=== PATIENT | female | born 1990 | race Hispanic/Latino ===

== ENCOUNTER 2016-10-31 05:49 | Inpatient (IN) | payer MEDICAID ==
[~2016-10-31] VITALS: Ht 157.5 cm; Wt 73.0 kg
[~2016-10-31 05:49] MED LIST: HYDR25SU31 RC; NORE1PAT TD; OXYC-388 PO
[2016-10-31] MEDS ORDERED: Lactated Ringer's 1,000 ML IV PRN (06:46)
[2016-10-31] MEDS ORDERED: Oxytocin 30 Units/500 mL LR 30 UNITS in IV Premix 1 EACH IV PRN ×2 (06:50→10:45)
[2016-10-31] MEDS ORDERED: Sodium Chloride LOK Flush 10 mL Syringe IVFLUSH PRN (06:50)
[2016-10-31] MEDS ORDERED: Oxytocin 30 Units/500 mL LR Premix IV ONE (06:50)
[2016-10-31] MEDS ORDERED: Oxytocin 10 Unit/mL Inj IM PRN ×2 (06:50→10:45)
[2016-10-31] MEDS ORDERED: Hemorrhage Kit, Post Partum XX ONE ×2 (06:50→10:45)
[2016-10-31] MEDS ORDERED: Methylergonovine 0.2 mg/mL Inj IM PRN ×2 (06:50→10:45)
[2016-10-31] MEDS ORDERED: Carboprost 250 mCg/mL Inj IM PRN ×2 (06:50→10:45)
[2016-10-31 07:06] LABS: Mean Corpuscular Hemoglobin 24.3 pg (27.0-35.0); Mean Corpuscular Volume 77.5 fL (81-100)
[2016-10-31] MEDS ORDERED: PREN1TAB87 PO (07:08)
[2016-10-31] MEDS ORDERED: Lactated Ringer's 500 ML IV ONE (07:19)
[2016-10-31] MEDS ORDERED: EPHEDrine Sulfate 50 mg/mL Inj IVPUSH PRN (07:20)
[2016-10-31] MEDS ORDERED: Atropine 1 mg/10 mL (Code) Syringe IVPUSH PRN (07:20)
[2016-10-31] MEDS ORDERED: fentaNYL 2 mCg/mL-Bupiv 0.125% 100 ML EPIDURAL SCH (07:20)
[2016-10-31] MEDS ORDERED: Ondansetron 2 mg/mL 2 mL Inj IVPUSH PRN (07:20)
[2016-10-31] MEDS: Lactated Ringer's 1,000 ML IV SCH ×4 (07:24→18:44)
--- NOTE | 2016-10-31 07:30 | PCM.HPOB ---
Subjective Date of Service: Oct 31, 2016 Referring Provider: Admitting Physician: John Salter MD Primary Care Physician: Nopcp Attending Physician: John Salter MD Chief Complaint Active labor Vaginal delivery 39 weeks gestation History of Present History of Present Illness This is a 25-year-old at 39 weeks and 5 days with an BANG of 11/02/16 established by 7 week 3 day ultrasound who presents with regular contractions and cervical change. She states this morning she has been having regular contractions. She states she has not had a loss of fluid at this point. She is having regular contractions every 1-2 minutes with cervical exam of 8 cm dilation. She is GBS negative. Her blood type is O negative, rubella immune, RPR nonreactive, Varicella nonimmune, HIV nonreactive and HBsAg negative. OB History: (3), Para (2), Term (2), Pre-term (0), ( 0), Living (2) Obstetrical Complications: Other (history of LEEP procedure) Past Medical History Obstetrical History: 1 2 Gynecologic History: Normal Pap smear LSIL LEEP procedure Ovarian cyst Medical History: Psoriasis Hx Tobacco Use: No Hx Alcohol Use: No Hx Substance Use: No Past Family History Living Arrangement: with Family Genetic Screening/Counseling Genetic Screening/Counseling: Negative Review of Systems Constitutional: Y: Fever Eyes: Denies: Blurred Vision ENT: Denies: Throat Pain Cardiovascular: Denies: Chest Pain, Orthopnea Respiratory: Denies: Pleuritic Chest Pain Gastrointestinal: Denies: Epigastric pain Genitourinary: Denies: Dysuria Musculoskeletal: Reports: Back Pain Neurological: Denies: Confusion Psychologic: Denies: Agitation Endocrine: Denies: Diaphoresis Allergy Coded Allergies: No Known Allergies (Verified Allergy, Unknown, 10/31/16) Exam Vital Signs bp 122/56 pulse 85 rr 16 temp 36.5 Exam heart tones baseline 145 Cat I with moderate variability Constitutional: Well-developed, Well-nourished, Normal habitus HEENT: Atraumatic, Scleral Anicteric Lungs: Clear to Auscultation Heart: Regular Rate/Rhythm, Normal S1, Normal S2, No Murmurs/Rubs/Gallops Abdomen: Gravid Extremities: Warm, No Edema Neurological/Psychiatric: Alert, Oriented X3, Cooperative, No Acute Distress Neuro: Normal DTRs, No Clonus noted, Cranial Nerves 3-12 nl, Normal Speech, Normal Gait Labs/Diagnostics Labs Laboratory Tests 72 Hours Test 10/31/16 06:30 White Blood Count 11.4th/mm3 (3.8-10.1) Red Blood Count 4.53mil/mm3 (3.90-5.20) Hemoglobin 11.0g/dL (12.0-15.6) Hematocrit 35.1% (35.0-46.0) Mean Corpuscular Volume 77.5fL (81-100) Mean Corpuscular Hemoglobin 24.3pg (27.0-35.0) Mean Corpuscular Hemoglobin Concent 31.3% (32.0-37.0) Red Cell Distribution Width 15.2% (12.3-15.4) Platelet Count 177bil/L (150-400) Maternal Blood Type: O (negative) Hx Rho(D) Immune Globulin: Yes Group B Strep Results: Negative Previous Infant with GBS: No Rubella: Immune Lab History: Negative for: Hx Chicken Pox, Hx HIV, Hx Syphilis OB Intrapartum Assessment/Plan Problems: (1) 39 weeks gestation of Status: Resolved ICD Code: Z3A.39 (2) Plan: Routine intrapartum care active Management of labor Rh negative - RhoGam after delivery Status: Resolved ICD Code: Z33.1 Attending Statement The patient was seen and examined together with Anny Case DO on 2016 and I agree with the history, exam and plan as outlined in the note above. Anny Paniagua DO Oct 31, 2016 07:30 John Salter MD Nov 04, 2016 19:27
--- NOTE | 2016-10-31 08:08 | PCM.HPANE ---
Patient Data Surgeon Admitting Provider:John Salter MD Attending Provider:John Salter MD Primary Care Physician:Mica Other Provider:Shelby Swain Anesthesia Reason for Visit Term Labor TERM LABOR Ht/WT & BMI Body Mass Index Allergies Coded Allergies: No Known Allergies (Verified Allergy, Unknown, 10/31/16) Past Anesthesia History Anesthesia History: Denies:: Fam Anesthesia Reaction, Fam Malignant Hypertherm Diabetes History Hx Diabetes?: No MRSA MRSA: No Medications Reported Medications Vit W-Ca,Fe,FA(<1 mg) ( Vitamins)1 Each Tablet1 Each PO 10/31/16 Discontinued Reported Medications oxyCODONE-Aspirin 5-325 mg 1 Each Tablet1 Tablet PO Q6H PRN For Pain Ref 0 11/30/14 Norelgestromin/Ethin.estradiol (Ortho Evra Patch)1 Each Patch.tdwk1 Each TD Q WK USE Q WEEK X3, THEN OFF 1 WEEK 11/30/14 Discontinued Scripts Hydrocortisone Acetate (Anusol-Hc)25 Mg Supp.rect25 Mg RC BID #10 SUPP Prov:Amari Garland MD 07/11/15 History History of ENT Problems?: No HEENT History: Denies:: Abnormal Airway Cataracts Difficult Intubation Dysphagia Glaucoma Hearing Problem Sinus Problem TMJ Denture Type: None Teeth Condition: Within Normal Limits Hx of Heart Problems?: No Cardiovascular History: Denies:: Congestive Heart Failure Hypertension Hx of Respiratory Problem?: Yes Respiratory History: Denies:: Tuberculosis (+PPD 2012-REPORTS BEING TOLD BY HEALTH DEPARTMENT THAT SHE WAS "NEG") Use of C-PAP Machine Other History/Comment ROS negative Hx Neurologic Problems?: No Hx of GI Problems?: Yes Hx of Problems?: No Female Hx: Positive for:: Pelvic Inflammatory (HX CHLAMYDIA 2013-TREATED) Denies:: Currently Skin History: Denies:: History Skin Disorders? Pressure Ulcers Hx Musculoskeletal Problems?: No Hx of Psycho/Social Problems?: No Hx Surgeries?: Yes (cone bx. ) Hx Any Other Health Problems?: No Other History: Positive for:: Hospitalization (CHILDBIRTH) Denies:: Cancer Endocrine Disease Thyroid Disease History Blood Transfusions: Denies:: Blood Transfusions Hx Diabetes: No Hx Alcohol Use: NoHx Substance Use: No Smoking Status: Never Smoker Have You Smoked inLast 12 mo: No Stop/Bang Treated for Sleep Apnea?: No Risk Assessment Category Category 1A: Patient has history of documented sleep apnea, and HAS NOT received any narcotic, sedative or anesthesia administration during this stay. Category 1B: Patient has history of documented sleep apnea, and HAS received any narcotic , sedative or anesthesia administration during this stay Category 2: Patient has SUSPECTED Obstructive Sleep Apnea, and HAS received any narcotic , sedative or anesthesia administration during this stay. Category 3: Patient has SUSPECTED Obstructive Sleep Apnea and HAS NOT received narcotic, sedative or anesthesia administration during this stay. Category 4: Outpatient in Procedural Areas with known sleep apnea or who screen positive for High Risk via the STOP/BANG questionnaire. Exam Exam General Appearance: Alert, Oriented X3, Cooperative, No Acute Distress HEENT/AIRWAY: MP 2 Lungs: Clear to Auscultation Heart: Regular Rate/Rhythm, Normal S1, Normal S2, No Murmurs/Rubs/Gallops Meds/Labs/Diagnostics Admission Meds Current Medications Lactated Ringer's (Lr) 1,000 ml @ 125 mls/hr Q8H IV Last administered on t 07:24; Start 10/31/16 at 07:19; Stop 11/01/16 at 07:20 Labs Test 10/31/16 06:30 White Blood Count 11.4th/mm3 (3.8-10.1) Red Blood Count 4.53mil/mm3 (3.90-5.20) Hemoglobin 11.0g/dL (12.0-15.6) Hematocrit 35.1% (35.0-46.0) Mean Corpuscular Volume 77.5fL (81-100) Mean Corpuscular Hemoglobin 24.3pg (27.0-35.0) Mean Corpuscular Hemoglobin Concent 31.3% (32.0-37.0) Red Cell Distribution Width 15.2% (12.3-15.4) Platelet Count 177bil/L (150-400) Plan Impression Patient chart reviewed, patient interviewed and anesthestic plan with risks, benefits, and alternatives discussed, and informed consent obtained. ASA Physical Status: ASA2 Mod Systemic Disease Anesthetic Plan: Epidural Bene/Risks/Altern/Consents: Yes HP Complete Prior to Induction: Yes Other History and physical completed before epidural, but charted afterwards to expidite pain relief Romeo Walsh MD Oct 31, 2016 08:08
--- NOTE | 2016-10-31 08:09 | PCM.ANEP1 ---
Post Anesthesia PACU Phase 1 Assessment Anesthetic Administered: Epidural Level of Alertness: Awake, talking DRAKE's with Equal Strength: No Pain: Yes Pain Scale Score: 2 Nausea or Vomiting: No CV Function & Hydration Stable: Yes Airway Device: Oxygen Delivery: Room Air Lungs: Clear to Auscultation Dermatome Level: T10 (Umbilicus) PACU Phase 2 Assessment Complications: No Follow up Care: No Patient Instructions Provided: Yes Comments Good pain relief Romeo Walsh MD Oct 31, 2016 08:09
--- NOTE | 2016-10-31 08:22 | HP ---
[address] [address] HISTORY AND PHYSICAL PATIENT: SCOTT HOANG : 1990 MR#: [id number] ADMIT: 10/31/2016 JOB ID: [id number] This is a 25-year-old female 3, para 2-0-0-2, at 39 weeks plus 5 days. She presented to [facility] for contractions and she was noticed to be 8 cm dilated. This is a patient who had routine care at [facility]. During her care, it was noticed that her blood type is O negative, varicella nonimmune, rubella immune, RPR negative, HBsAg negative, HIV negative. Diabetes screen, GCT 135. Chlamydia and gonorrhea negative. GBS negative. ALLERGIES: The patient has no known drug allergies. PAST MEDICAL HISTORY: Declined. PAST SURGICAL HISTORY: History of LEEP procedure for SURINDER III. GYNECOLOGIC HISTORY: The patient has a known Pap smear and diagnosed SURINDER III and she had a LEEP procedure in 2014. During she had serial cervical length measurements within normal limits. OBSTETRICAL HISTORY: She has two vaginal deliveries before at 2007 and 2012. Both deliveries not complicated. PHYSICAL EXAMINATION: She is afebrile. Cardiac: RRR. No murmur. Pulmonary: Bilaterally clear. Abdomen: Soft, nontender. Uterus relaxed well during contractions. Extremities: Nontender. Pelvic examination was 8 cm dilation, -2 station. ASSESSMENT AND PLAN: 1. A 35-year-old female 3, para 2-0-0-2, at 39 weeks plus 5 days presents to [facility] for labor. When patient in active labor, she can get epidural for pain if it is possible. 2. Expect vaginal delivery. 3. No antibiotic needed for GBS negative status. 4. The patient desires for permanent sterilization. Consent form signed more than a month ago.
[2016-10-31] MEDS: Sodium Chloride LOK Flush 10 mL Syringe IVFLUSH SCH ×2 (08:30→16:30)
[2016-10-31] MEDS ORDERED: HYDROcodone-APAP 5-325 mg Tablet PO PRN (10:45)
[2016-10-31] MEDS ORDERED: Benzocaine (Dermoplast) 20% 60 Gm Spray TOPICAL PRN (10:45)
[2016-10-31] MEDS ORDERED: Witch Hazel-Glycerin Pads TOPICAL PRN (10:45)
[2016-10-31] MEDS ORDERED: LANOlin HPA 7 Gm Ointment TOPICAL PRN (10:45)
--- NOTE | 2016-10-31 11:20 | PCM.OBVAG ---
Vaginal Delivery Date of Service Oct 31, 2016 Pre Operative Diagnosis Pre Operative Diagnosis 39 weeks gestation Vaginal delivery Post Operative Diagnosis Post Operative Diagnosis Procedure Procedure: This is a 25-year-old at 39 weeks and 5 days with an BANG of 11/02/16 established by 7 week 3 day ultrasound who presents with regular contractions and cervical change. She states this morning she has been having regular contractions. She states she has not had a loss of fluid at this point. She is having regular contractions every 1-2 minutes with cervical exam of 8 cm dilation. She is GBS negative. She was found to be completed at the time of artificial rupture of membranes at 947. 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 No nuchal cord was noted. The rest of the body was delivered. The baby was placed on maternal abdomen, skin to skin. Warming and stimulating maneuvers were applied. After a minute, the cord was clamped, and cut. The was delivered at 10:30. The umbilical cord did avulse so manual extraction of the placenta was done at bedside and the placenta was extracted intact at 1037. Uterus firmed with manual external massage. The perineum was examined and there was a first degree tear which was repaired with 3-0 vicryl in the usual fashion. Sponge and instrument counts were correct x2 at the close of the procedure. The patient and infant tolerated the procedure well and pt is stable in her room. Specimen Specimens: Placenta (for disposal), Cord gas/pH (cord blood sample obtained) IV Intake/Output Catheters: None Blood Loss & Administration Estimated Blood Loss: 200 Blood Admin during procedure: No Post Procedure Plan Post Procedure Plan Routine care RhoGAM before discharge Post delivery Condition: Mom stable, Baby stable to nursery Attending Statement I was present for the entire procedure and assisted Dr. Anny Paniagua as needed and agree with the above documentation. Anny Paniagua DO Oct 31, 2016 11:11 John Salter MD Nov 04, 2016 19:30
[2016-10-31] MEDS ORDERED: Sodium Citrate-Citric Acid 30 mL Solution PO ONE (11:30)
[2016-10-31] MEDS ORDERED: Sodium Citrate-Citric Acid 15 mL Solution PO ONE (12:10)
[2016-10-31] MEDS ORDERED: Bupivacaine-MPF 0.25%/EPI 30 mL Inj ONE (12:32)
--- NOTE | 2016-10-31 14:19 | OP ---
[address] [address] OPERATIVE REPORT PATIENT: SCOTT HOANG : 1990 MR#: [id number] ADMIT: 10/31/2016 JOB ID: [id number] DATE OF SURGERY: 10/31/2016 PREOPERATIVE DIAGNOSIS(ES): 1. Sterilization. 2. Multigravida. POSTOPERATIVE DIAGNOSIS(ES): 1. Sterilization. 2. Multigravida. PROCEDURE PERFORMED: bilateral tubal ligation using a modified Hull method. SURGEON: John Salter MD ROCK DRILL OPERATOR: Prince Gallego MD ANESTHESIA: Epidural. ESTIMATED BLOOD LOSS: 1 mL. COMPLICATIONS: None. PATHOLOGY SENT: Portion of right and left fallopian tube. FINDINGS AT TIME OF SURGERY: Normal appearing fallopian tubes bilaterally. INDICATION FOR PROCEDURE: The patient is a 25-year-old three, now para three, who is recently status post normal spontaneous vaginal delivery who desires permanent sterilization. She understands the permanence of the procedure and requested bilateral tubal ligation. DESCRIPTION OF PROCEDURE: The patient was taken to the operating room, where her epidural anesthesia was found be adequate. She was placed in a lithotomy position and prepared and draped in the normal sterile fashion. An adequate and appropriate preoperative time-out was performed. The umbilicus was then injected with 5 mL of 0.25% Marcaine with epinephrine. A transverse skin incision was made just below the umbilicus approximately 5 cm in length. This was then carried down to the underlying fascia, which was tented up and entered sharply. The fascial incision was extended with gentle traction. The perineum was identified and entered sharply with Metzenbaum scissors. The right fallopian tube was then identified and followed out to the fimbriated end. A defect was made in the mesosalpinx and two free ties of 0 plain gut suture were used to isolate and ligate a segment of the tube. The intervening segment was excised. Good hemostasis was assured. The fallopian tube was returned to the patient's peritoneal cavity. In a similar fashion, the left fallopian tube was identified, followed out to its fimbriated end. The tube was grasped with a [place] clamp in the mid isthmic portion and a defect made in the mesosalpinx. Two free ties of 0 plain gut suture were used to isolate and ligate a segment of the tube and the intervening segment was excised. Good hemostasis was assured. The fallopian tube was returned to the patient's peritoneal cavity. The fascia was then reapproximated in a running fashion with 0-Vicryl suture. The skin was closed with a 4-0 Monocryl in a subcuticular fashion and Dermabond applied. All lap, instrument, and needle counts were correct x2 at the end of the procedure. The patient was taken to the recovery room, awake and in good condition.
[2016-10-31] MEDS: Ascorbic Acid 500 mg Tablet PO SCH (18:55)
--- NOTE | 2016-10-31 19:09 | NUR ---
Admit Term AGA vigorous male - exam WNL. VSS and temp WNL as well. BAby has stooled and voided, and nursing well independently. bart noted on R lateral aspect of ankle. Mom providing care independently. Stable and progressing toward DC goals.
[2016-11-01] MEDS ORDERED: CeFAZolin Inj 2 GM in IV Premix 1 EACH IV ONE (06:00)
[2016-11-01 06:43] LABS: Mean Corpuscular Hemoglobin 24.1 pg (27.0-35.0); Mean Corpuscular Volume 78.5 fL (81-100)
[2016-11-01] MEDS: Ascorbic Acid 500 mg Tablet PO SCH ×2 (08:40→18:12)
--- NOTE | 2016-11-01 11:55 | PCM.DIOB ---
Obstetrical Disch Instruction Date of Service: Nov 01, 2016 Dates of Hospitalization Date of Hospital Admission Oct 31, 2016 at 06:06 Providers Admitting Physician: John Salter MD Primary Care Physician: Mica Attending Physician: John Salter MD Discharge Diagnosis Discharge Diagnosis PPD1 Problems: (1) 39 weeks gestation of Status: Acute ICD Code: Z3A.39 (2) Plan: discharge home today Status: Acute ICD Code: Z33.1 Diet Discharge Diet: No restrictions Activity Discharge Activity-General: Pelvic Rest for 6 weeks, Try not to overdue, Be up and about, Balance rest and activity, No lifting >15 pounds for 2 weeks Dressing and Incisional Care Hygiene: May shower, NO bathtub, hot tub or whirlpool Additional Instructions Discharge Instructions Please call office or go to ER if heavy vaginal bleeding, severe abdominal pain , foul smelling discharge, fever more than 100.4 or short of breath. Follow Up Plan Follow Up Plan 6 weeks Call your provider for: Fever or Chills, Shortness of breath, Heavy vaginal bleeding, Heavy bleeding, Epigastric pain, Excessive constipation, Vaginal discomfort, Red painful breasts Bárbara Vazquez MD Nov 01, 2016 11:55
[2016-11-01] MEDS ORDERED: IBUP800T28 PO (11:57)
[2016-11-01] MEDS ORDERED: FERR-74 PO (11:57)
[2016-11-01] MEDS ORDERED: DOCU-41 PO (11:57)
[2016-11-01] MEDS ORDERED: HYDR-4003 PO (11:57)
--- NOTE | 2016-11-01 12:01 | PCM.DC.OB ---
Obstetrical Discharge Summary Date of Service Nov 01, 2016 Date of hospital admission Oct 31, 2016 at 06:06 Date of Discharge: Nov 01, 2016 Providers Admitting Physician: John Salter MD Primary Care Physician: Nopcp Attending Physician: John Salter MD Diagnosis at Time of Discharge PPD1 Problems: (1) 39 weeks gestation of Status: Resolved ICD Code: Z3A.39 (2) Status: Resolved ICD Code: Z33.1 Invasive procedures and tubal ligation Date of Procedure: Oct 31, 2016 Brief History and Physical: This is a 25-year-old at 39 weeks and 5 days with an BANG of 11/02/16 established by 7 week 3 day ultrasound who presents with regular contractions and cervical change. She states this morning she has been having regular contractions. She states she has not had a loss of fluid at this point. She is having regular contractions every 1-2 minutes with cervical exam of 8 cm dilation. She is GBS negative. Her blood type is O negative, rubella immune, RPR nonreactive, Varicella nonimmune, HIV nonreactive and HBsAg negative. Hospital Course: , not complicated. tubal ligation was done Doing well after delivery. Ready to discharge Docusate Sodium (Colace) 100 Mg Capsule 100 MG PO DAILY Prescribed by: BÁRBARA HYDE MD Ferrous Sulfate (Feosol) 325 Mg Tablet 325 MG PO BIDWM Prescribed by: BÁRBARA HYDE MD Hydrocodone-Acetaminophen 5-325 mg (Hydrocodone-Acetaminophen 5-325 mg) 1 Each Tablet 1 TABLET PO Q12H PRN PRN For Pain Prescribed by: BÁRBARA HYDE MD Ibuprofen (Ibuprofen) 800 Mg Tablet 800 MG PO Q6H PRN PRN For Pain Prescribed by: BÁRBARA HYDE MD Vit W-Ca,Fe,FA(<1 mg) ( Vitamins) 1 Each Tablet 1 EACH PO ( Reported) Last Taken: Unknown Dose on 10/30/16 Discontinued Medications Hydrocortisone Acetate (Anusol-Hc) 25 Mg Supp.rect 25 MG RC BID Prescribed by: WYATT COTO MD Norelgestromin/Ethin.estradiol (Ortho Evra Patch) 1 Each Patch.tdwk 1 EACH TD Q WK (Reported) USE Q WEEK X3, THEN OFF 1 WEEK oxyCODONE-Aspirin 5-325 mg (oxyCODONE-Aspirin 5-325 mg) 1 Each Tablet 1 TABLET PO Q6H PRN PRN For Pain (Reported) Disposition home Follow-up plan 6 weeks after delivery Discharge Diet: No restrictions Discharge Activity-General: Pelvic Rest for 6 weeks, Pelvic Rest, Try not to overdue, Be up and about, Balance rest and activity, No lifting >15 pounds for 2 weeks Bárbara Hyde MD Nov 01, 2016 12:01
[2016-11-01 18:39] VITALS: BP 105/62; PULSE 71; RESP 14
--- NOTE | 2016-11-04 10:20 | PATH ---
SURGICAL PATHOLOGY Attending Physician:John Salter, CASE STATUS: Signed Out PATIENT NAME: SCOTT HOANG PID: [id number] : 1990 DATE COLLECTED:10/31/2016 00:00 SPECIMEN: 1: Fallopian Tube, Sterilization 2: Fallopian Tube, Sterilization CLINICAL HISTORY: PORTION OF RIGHT AND LEFT FALLOPIAN TUBES 1). LEFT PORTION FALLOPIAN TUBE 2). RIGHT PORTION FALLOPIAN TUBE FINAL DIAGNOSIS: 1. Portion of Left Fallopian Tube: Full-thickness cross-sections of one segment of fallopian tube identified. 2. Portion of Right Fallopian Tube: Full-thickness, cross-sections of one segment of fallopian tube identified. ICD10: Z30.2 GROSS DESCRIPTION: The specimen is received in 2 containers fresh and labeled with the patient's name. 1). The specimen is labeled "L tube" and consists of a non-fimbriated cylindrical shaped portion of tissue which measures 1.0 x 0.6 x 0.6 CM. The specimen is sectioned into 3 pieces and entirely submitted in cassette 1A. 2). The specimen is labeled "R tube" and consists of a non-fimbriated cylindrical shaped portion of tissue which measures 1.0 x 0.5 x 0.5 CM. The specimen is sectioned into 3 pieces and entirely submitted in cassette 2A. 11/01/2016HI ICD-9 CODES: CPT CODES: 1: 13178 2: 62608 Electronically Signed Out Kaveh Gonzalez MD, PhD [facility] Pathology [facility] [address] [place] [address], [place] [address] Technical component performed at [facility], [facility] [address], [place], [address]
== END 2016-11-01 21:20 | disposition home or self-care (01) | DRG 767 ==
LOC: FBCO 05:49 → FBC 06:06
PROVIDERS: ADMIT Obstetrics & Gynecology; ATTEND Obstetrics & Gynecology
PROC: 0UB70ZZ Excision of Bilateral Fallopian Tubes, Open Approach (ICD-10-PCS; 2016-10-31)
PROC: 0HQ9XZZ Repair Perineum Skin, External Approach (ICD-10-PCS; 2016-10-31)
PROC: 10907ZC Drainage of Amniotic Fluid, Therapeutic from Products of Conception, Via Natural or Artificial Opening (ICD-10-PCS; 2016-10-31)
PROC: 10E0XZZ Delivery of Products of Conception, External Approach (ICD-10-PCS; principal; 2016-10-31 12:35)
DX: O70.0 First degree perineal laceration during delivery (principal); Z37.0 Single live birth; Z30.2 Encounter for sterilization; Z3A.39 39 weeks gestation of pregnancy